=== PATIENT | male | born 1985 | race Caucasian/White ===

== ENCOUNTER 2017-09-01 19:14 | Emergency (ER) | payer BC ==
--- NOTE | 2017-09-01 20:01 | EDM.PDOC ---
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 Started 2 days ago with a feeling of phlegm in his throat and then yesterday developed chills hot and cold feeling a temperature at home as high as 103.1. Also had pressure nausea painful swallowing, dizziness meaning lightheadedness. Continuing to need to clear his throat. 3-year-old daughter was diagnosed with throat infection a couple of days ago and treated with antibiotics despite negative strep testing and negative culture , improve very quickly. had some cold symptoms as well. Treatments [employer] P[employer]ER: Reports: Acetaminophen - Related Data Allergies Allergy/AdvReac Type Severity Reaction Status Date / Time No Known Allergies Allergy Verified 09/01/17 19:33 Home Meds: Home Meds Azithromycin [Zithromax] 250 mg PO DAILY #6 tab 09/01/17 [Rx] ED ROS ENT - Review of Systems Review Of Systems: See Below Constitutional: Reports: Fever, Malaise, Fatigue HEENT: Reports: Throat Pain, Throat Swelling. Denies: Dental Pain, Ear Pain, Rhinitis Respiratory: Denies: Shortness of Breath, Cough Cardiovascular: Denies: Chest Pain GI/Abdominal: Reports: Decreased Appetite, Nausea. Denies: Diarrhea, Vomiting : Reports: No Symptoms Musculoskeletal: Reports: No Symptoms Skin: Reports: No Symptoms Neurological: Reports: Headache. Denies: Confusion, Trouble Speaking, Difficulty Walking, Change in Speech, Gait Disturbance Hematologic/Lymphatic: Reports: No Symptoms Immunologic: Reports: No Symptoms ED EXAM, ENT - Physical Exam Exam: See Below Exam Limited By: No Limitations General Appearance: Alert, Mild Distress, Other (Low-grade fever, otherwise appears well) Eye Exam: Bilateral Eye: Normal Inspection Ears: Normal External Exam, Normal Canal, Hearing Grossly Normal, Normal TMs Nose: Normal Inspection, Normal Mucousa Mouth/Throat: Normal Lips, Pharyngeal Erythema. No: Dental Abcess, Dental Tenderness, Hoarse Voice, Tonsillar Exudates, Tonsillar Swelling Head: Atraumatic Neck: Supple, Lymphadenopathy (R), Lymphadenopathy (L) (Mild) Respiratory/Chest: No Respiratory Distress, Lungs Clear, Normal Breath Sounds, No Accessory Muscle Use Cardiovascular: Normal Peripheral Pulses, Regular Rate, Rhythm Neurological: Alert, Oriented, No Motor/Sensory Deficits Skin: Warm, Dry, Intact, Normal Color, No Rash Course - Vital Signs Last Recorded V/S: Last Vital Signs Temp 37.8 C 09/01/17 19:31 Pulse 99 09/01/17 19:31 Resp 18 09/01/17 19:31 BP 142/85 H 09/01/17 19:31 Pulse Ox 100 09/01/17 19:31 - Orders/Labs/Meds Orders: Active Orders 24 hr Category Date Time Status STREP SCRN A RAPID W CULT CONF [RM] Stat Lab 09/01/17 19:35 Ordered - Re-Assessments/Exams Free Text/Narrative Re-Assessment/Exam: 09/01/17 19:59 31-year-old male with fever sore throat who missed work today Pharyngitis and lymphadenopathy Rapid strep test taken by the nurse is negative Elected treatment because of the unusual occurrence of fever, possible sinus infection Departure - Departure Time of Disposition: 20:00 Disposition: Home, Self-Care 01 Condition: Good Clinical Impression: Pharyngitis Qualifiers: Pharyngitis/tonsillitis etiology: unspecified etiology Qualified Code(s): J02.9 - Acute pharyngitis, unspecified Upper respiratory infection Qualifiers: URI type: unspecified URI Qualified Code(s): J06.9 - Acute upper respiratory infection, unspecified - Discharge Information Prescriptions: Azithromycin [Zithromax] 250 mg PO DAILY #6 tab Instructions: Pharyngitis Referrals: PCP,None [Primary Care Provider] - Forms: ED Department Discharge Additional Instructions: See your physician/clinic 1 week if not improved - My Orders Last 24 Hours: My Active Orders 09/01/17 19:35 STREP SCRN A RAPID W CULT CONF [RM] Stat - Assessment/Plan Last 24 Hours: My Active Orders 09/01/17 19:35 STREP SCRN A RAPID W CULT CONF [RM] Stat
== END 2017-09-01 20:14 | disposition home or self-care (01) ==
LOC: JP.ED 19:14
DX: J02.9 Acute pharyngitis, unspecified (principal); J06.9 Acute upper respiratory infection, unspecified
CPT/HCPCS: 87081; 87430; 99283